=== PATIENT | female | born 1995 | race Caucasian/White ===

== ENCOUNTER 2018-07-16 17:56 | Emergency (ER) | payer MEDICAID ==
[2018-07-16] MEDS ORDERED: METHYLPREDNISOLONE INJ 125 MG/2 ML SDV IV ONE (18:24)
[2018-07-16] MEDS ORDERED: IPRATROPIUM/ALBUTEROL 0.5-2.5 MG/3 ML AMPUL NEB ONE (18:24)
--- NOTE | 2018-07-16 18:25 | ER Document Report ---
ED Medical Screen (RME) - General Chief Complaint: Abdominal Pain Stated Complaint: ABDOMINAL/BACK PAIN Time Seen by Provider: 07/16/18 18:19 Mode of Arrival: Ambulatory Information source: Patient Notes: 22-year-old female presents emergency department with complaints of a cramping sensation in the suprapubic region. She states that she has been having worsening pain for the last 2 weeks. She denies any radiation of the pain. She denies any alleviating or exacerbating factors. Patient states that she had her menstrual cycle a week ago. She states that her vaginal bleeding has stopped. Patient states that she has a Mirena in place. She thinks that the Mirena became dislodged. She states that it was placed on 01/05. Patient denies any abnormal vaginal discharge, dysuria, hematuria, increased urgency, increased frequency. Patient states that she has been having some wheezing, headaches, rhinorrhea, sore throat over the last 3 weeks. Physical exam is remarkable for wheezing. I have greeted and performed a rapid initial assessment of this patient. A comprehensive ED assessment and evaluation of the patient, analysis of test results and completion of the medical decision making process will be conducted by additional ED providers. PHYSICAL EXAMINATION: GENERAL: Well-appearing, well-nourished and in no acute distress. HEAD: Atraumatic, normocephalic. EYES: Pupils equal round extraocular movements intact, conjunctiva are normal. ENT: Nares patent NECK: Normal range of motion LUNGS: Diffuse wheezing Musculoskeletal: Normal range of motion NEUROLOGICAL: Normal speech, normal gait. PSYCH: Normal mood, normal affect. SKIN: Warm, Dry, normal turgor, no rashes or lesions noted. TRAVEL OUTSIDE OF THE [place] IN LAST 30 DAYS: No - Related Data Allergies/Adverse Reactions: No Known Allergies Allergy (Unverified 07/16/18 17:57) Physical Exam - Vital signs Vitals: Temp Pulse Resp BP Pulse Ox 98.6 F 95 16 127/81 H 95 07/16/18 17:59 07/16/18 17:59 07/16/18 17:59 07/16/18 17:59 07/16/18 17:59 Course - Vital Signs Vital signs: Temp Pulse Resp BP Pulse Ox 98.6 F 95 16 127/81 H 95 07/16/18 17:59 07/16/18 17:59 07/16/18 17:59 07/16/18 17:59 07/16/18 17:59
[2018-07-16] MEDS ORDERED: ACETAMINOPHEN 325 MG TABLET PO ONE (18:28)
[2018-07-16] MEDS ORDERED: METHYLPREDNISOLONE INJ 125 MG/2 ML SDV IM ONE (18:28)
--- NOTE | 2018-07-16 19:07 | ER Document Report ---
ED General - General Chief Complaint: Abdominal Pain Stated Complaint: ABDOMINAL/BACK PAIN Time Seen by Provider: 07/16/18 18:19 Mode of Arrival: Ambulatory Information source: Patient Notes: 22-year-old female presents with complaint of suprapubic abdominal pain that has been ongoing for 9 months but worse over the last week. She describes the pain as pressure-like, stabbing. Patient states that she had an IUD placed 7 months ago and experienced her first. 2 weeks ago which ended 1 week ago. Patient denies vaginal discharge but states that she has noticed a foul odor. Patient does have a 9-month-old daughter. Patient denies any fever, nausea, vomiting. She does have associated cough, nasal congestion, chills and low back pain. Patient is concerned that her IUD is misplaced because when she went to feel for the strings earlier this week she noticed that a lot more of the string was hanging out. She states that 2 days ago she had intercourse with her who now told her that he could feel something unusual. TRAVEL OUTSIDE OF THE [place] IN LAST 30 DAYS: No - HPI Onset: Other Onset/Duration: Gradual, Persistent Quality of pain: Pressure, Stabbing Severity: Moderate Associated symptoms: Chills, Nonproductive cough Exacerbated by: Denies Relieved by: Denies Similar symptoms previously: Yes Recently seen / treated by doctor: Yes - Related Data Allergies/Adverse Reactions: No Known Allergies Allergy (Unverified 07/16/18 17:57) Past Medical History - General Information source: Patient - Social History Smoking Status: Unknown if Ever Smoked Chew tobacco use (# tins/day): No Frequency of alcohol use: None Drug Abuse: None Lives with: Family Family History: Reviewed & Not Pertinent Patient has suicidal ideation: No Patient has homicidal ideation: No - Medical History Medical History: Negative Renal/ Medical History: Denies: Hx Peritoneal Dialysis Review of Systems - Review of Systems Notes: PHYSICAL EXAMINATION: GENERAL: Well-appearing, well-nourished and in no acute distress. HEAD: Atraumatic, normocephalic. EYES: Pupils equal round and reactive to light, extraocular movements intact, conjunctiva are normal. ENT: Nares patent, oropharynx clear without exudates. Moist mucous membranes. NECK: Normal range of motion, supple without lymphadenopathy LUNGS: Breath sounds clear to auscultation bilaterally and equal. No wheezes rales or rhonchi. HEART: Regular rate and rhythm without murmurs ABDOMEN: Soft, nontender, nondistended abdomen. No guarding, no rebound. No masses appreciated. Female : deferred Musculoskeletal: Normal range of motion, no pitting or edema. No cyanosis. NEUROLOGICAL: Cranial nerves grossly intact. Normal speech, normal gait. Normal sensory, motor exams PSYCH: Normal mood, normal affect. SKIN: Warm, Dry, normal turgor, no rashes or lesions noted. Physical Exam - Vital signs Vitals: Temp Pulse Resp BP Pulse Ox 98.6 F 95 16 127/81 H 95 07/16/18 17:59 07/16/18 17:59 07/16/18 17:59 07/16/18 17:59 07/16/18 17:59 - Notes Notes: PHYSICAL EXAMINATION: GENERAL: Well-appearing, well-nourished and in no acute distress. HEAD: Atraumatic, normocephalic. EYES: Pupils equal round and reactive to light, extraocular movements intact, conjunctiva are normal. ENT: Nares patent, oropharynx clear without exudates. Moist mucous membranes. NECK: Normal range of motion, supple without lymphadenopathy LUNGS: Breath sounds clear to auscultation bilaterally and equal. No wheezes rales or rhonchi. HEART: Regular rate and rhythm without murmurs ABDOMEN: Soft, nontender, nondistended abdomen. No guarding, no rebound. No masses appreciated. Female : Pelvic exam; External genitalia unremarkable. Speculum exam with discharge/no discharge. Vaginal wall unremarkable. Os closed. IUD strings appreciated. No cervical motion tenderness. No adnexal tenderness or masses appreciated. Swabs obtained for gonorrhea, chlamydia and wet prep. Musculoskeletal: Normal range of motion, no pitting or edema. No cyanosis. NEUROLOGICAL: Cranial nerves grossly intact. Normal speech, normal gait. Normal sensory, motor exams PSYCH: Normal mood, normal affect. SKIN: Warm, Dry, normal turgor, no rashes or lesions noted. Course - Re-evaluation Re-evalutation: Laboratory 07/16/18 07/16/18 07/16/18 18:30 18:30 20:00 Urine Color YELLOW Urine Appearance CLEAR Urine pH 5.0 Ur Specific Matthews 1.023 Urine Protein NEGATIVE Urine Glucose (UA) NEGATIVE Urine Ketones NEGATIVE Urine Blood SMALL H Urine Nitrite NEGATIVE Urine Bilirubin NEGATIVE Urine Urobilinogen NEGATIVE Ur Leukocyte Esterase NEGATIVE Urine WBC (Auto) 0 Urine RBC (Auto) 2 Squamous Epi Cells Auto 1 Urine Mucus (Auto) RARE Urine Ascorbic Acid NEGATIVE Urine HCG, Qual NEGATIVE Epi Cells (Wet Prep) Cancelled Bacteria (Wet Prep) Cancelled Trichomonas (Wet Prep) Cancelled Vaginal WBC Cancelled Vaginal RBC Cancelled Vaginal Yeast Cancelled 07/16/18 22:20 Urine Color Urine Appearance Urine pH Ur Specific Matthews Urine Protein Urine Glucose (UA) Urine Ketones Urine Blood Urine Nitrite Urine Bilirubin Urine Urobilinogen Ur Leukocyte Esterase Urine WBC (Auto) Urine RBC (Auto) Squamous Epi Cells Auto Urine Mucus (Auto) Urine Ascorbic Acid Urine HCG, Qual Epi Cells (Wet Prep) Bacteria (Wet Prep) Trichomonas (Wet Prep) NO TRICHOMONAS SEEN Vaginal WBC NO WBCS SEEN Vaginal RBC NO RBCS SEEN Vaginal Yeast NO YEAST SEEN Chest X-Ray 07/16/18 18:23 IMPRESSION: REACTIVE AIRWAY DISEASE VERSUS VIRAL SYNDROME. NO CONSOLIDATION. Transvaginal US 07/16/18 19:03 IMPRESSION: Intrauterine device is present in the cervical canal. 22-year-old female presents with complaint of suprapubic abdominal pain that started 1 week prior to arrival. Patient describes the pain as pressure-like, stabbing. Upon arrival vitals were reviewed and within normal limits. Patient does not appear toxic or dehydrated. She is in no acute distress. Pelvic exam did show thin white discharge and IUD strings were identified. Transvaginal ultrasound was performed and showed the IUD in the cervical canal. No evidence of urinary tract infection, bacterial vaginosis, trichomonas. I did speak to OB /SECURITY OPERATIONS ANALYST on-call who advises to remove the IUD which was done without difficulty. Patient received Motrin for pelvic cramping. Patient was evaluated and treated as appropriate for the patient's presenting symptoms and complaint, with consideration of any critical or life threatening conditions that may be associated with their obtained history and exam as noted above. All results were discussed with patient. Patient provided the opportunity to ask questions, and express concerns. Patient was educated on treatments based on their presumed diagnosis as noted above. At this time we will discharge the patient with return precautions and follow-up recommendations. Verbal discharge instructions given a the bedside. Medication warnings reviewed. Patient is in agreement with this plan and has verbalized understanding of return precautions. After careful consideration I feel that that patient can be safely discharged from the emergency department, they were advised to followup with a primary care physician in 2-3 days. Dictation on this chart was performed using voice recognition software and may result in unintended grammatical, spelling, syntax or errors. 07/16/18 21:[address] Romero OB on-call regarding the patient's IUD that is in the cervical canal. He advises removing it. 07/16/18 22:20 IUD was easily removed with [employer] forceps. Repeat swabs obtained secondary to initial samples being sent to the wrong part of the department. 07/16/18 23:35 07/16/18 23:36 - Vital Signs Vital signs: Temp Pulse Resp BP Pulse Ox 98.6 F 95 16 127/81 H 95 07/16/18 17:59 07/16/18 17:59 07/16/18 17:59 07/16/18 17:59 07/16/18 17:59 - Laboratory Laboratory results interpreted by me: 07/16/18 18:30 Urine Blood SMALL H - Diagnostic Test Radiology reviewed: Image reviewed, Reports reviewed Discharge - Discharge Clinical Impression: Pelvic pain, Abdominal cramping IUD complication Qualifiers: Device complication type: mechanical Mechanical complication type: other Encounter type: initial encounter Qualified Code(s): T83.39XA - Other mechanical complication of intrauterine contraceptive device, initial encounter Condition: Good Disposition: HOME, SELF-CARE Instructions: Pelvic Pain ([facility]) Additional Instructions: Your ultrasound today showed that your IUD was in the cervical canal. After discussing these findings with PMO LEAD it was recommended that we remove the IUD which was performed without complication. Please follow-up with your PMO LEAD for reinsertion if desired. Follow up with your [id number] hours for further care or return to the ED IMMEDIATELY if symptoms worsen or you have any concerns. If you cannot afford to follow up with your primary care physician a list of low cost clinics have been provided at the end of your discharge papers as well. Most prescribed medications have multiple side effects. The safest thing to do is when filling your prescription speak to your pharmacist regarding possible interactions with your normal home medications and over the counter medications such as Ibuprofen, Tylenol, Benadryl. If you experience any symptoms that cause you discomfort or concern you should discontinue the medication immediately and return to the emergency room or call your primary care physician. Prescriptions: Naproxen [Naprosyn] 500 mg PO BID #20 tablet Referrals: IRENE RODRIGUEZ MD [ACTIVE STAFF] - Follow up as needed DINAH PAL MD [EMERITUS] - Follow up as needed
--- NOTE | 2018-07-16 19:10 | RADIOLOGY REPORT (SQ) ---
EXAM DESCRIPTION: CHEST 2 VIEWS COMPLETED DATE/TIME: 07/16/2018 6:49 pm REASON FOR STUDY: cough COMPARISON: None. NUMBER OF VIEWS: Two view. TECHNIQUE: Frontal and lateral radiographic views of the chest acquired. LIMITATIONS: None. FINDINGS: LUNGS AND PLEURA: Mild Peribronchial cuffing . No consolidation, effusion, or pneumothora x. MEDIASTINUM AND HILAR STRUCTURES: No masses. No contour abnormalities. HEART AND VASCULAR STRUCTURES: Heart normal in size and contour. No evidence for failure. BONES: No acute findings. HARDWARE: None in the chest. OTHER: No other significant finding. IMPRESSION: REACTIVE AIRWAY DISEASE VERSUS VIRAL SYNDROME. NO CONSOLIDATION. TECHNICAL DOCUMENTATION: JOB ID: [id number] [place]-[id number] 2010 [employer]- All Rights Reserved Reading location - IP/workstation name: [employer]
[2018-07-16 20:23] LABS: APPEARANCE,URINE CLEAR; BILIRUBIN,URINE NEGATIVE (NEGATIVE); COLOR,URINE YELLOW; GLUCOSE, URINE NEGATIVE (NEGATIVE); KETONES,URINE NEGATIVE (NEGATIVE); LEUKOCYTE ESTERASE,URINE NEGATIVE (NEGATIVE); NITRITE,URINE NEGATIVE (NEGATIVE); PROTEIN,URINE NEGATIVE (NEGATIVE); URINE SPECIFIC GRAVITY 1.023; UROBILINOGEN,URINE NEGATIVE mg/dL (<2.0)
--- NOTE | 2018-07-16 20:40 | RADIOLOGY REPORT (SQ) ---
EXAM DESCRIPTION: U/S NON OB PEL TV W/DOPPLER COMPLETED DATE/TIME: 07/16/2018 8:07 pm REASON FOR STUDY: pelvic pain COMPARISON: None. TECHNIQUE: Dynamic and static grayscale images acquired of the pelvis via transvaginal approach and recorded on PACS. Additional selected color Doppler and spectral images recorded. LIMITATIONS: None. FINDINGS: UTERUS: Contour normal. No mass. ENDOMETRIAL STRIPE: No focal or generalized thickening. No masses. CERVIX: Intrauterine device is present in the cervical canal. RIGHT OVARY AND DOPPLER: Normal size. No worrisome masses. Normal arterial vascular flow without evid ence for torsion. LEFT OVARY AND DOPPLER: Normal size. No worrisome masses. Normal arterial vascular flow without evide nce for torsion. FREE FLUID: None noted. OTHER: No other significant finding. MEASUREMENTS: UTERUS: 7.3 x 4.2 x 3.4 cm ENDOMETRIAL STRIPE: 6.7 mm RIGHT OVARY: 3.8 x 2.2 x 1.8 cm LEFT OVARY: 3.9 x 2.4 x 2.4 cm IMPRESSION: Intrauterine device is present in the cervical canal. TECHNICAL DOCUMENTATION: JOB ID: [id number] [place]-[id number] 2010 [employer]- All Rights Reserved Rev-01/29 Reading location - IP/workstation name: [email or web address]
[2018-07-16 22:30] LABS: RBCS (WET MOUNT) NO RBCS SEEN; T.VAGINALIS (WET MOUNT) NO TRICHOMONAS SEEN; WBCS (WET MOUNT) NO WBCS SEEN; YEAST (WET MOUNT) NO YEAST SEEN
[2018-07-16] MEDS ORDERED: IBUPROFEN 600 MG TABLET PO ONE (22:32)
[2018-07-16 23:18] LABS: CHLAM PCR NOT DETECTED (NOT DETECT); GON PCR NOT DETECTED (NOT DETECT)
[2018-07-17 00:04] VITALS: BP 137/78
== END 2018-07-17 00:03 | disposition home or self-care (01) ==
LOC: ER 17:56
DX: T83.39XA Other mechanical complication of intrauterine contraceptive device, initial encounter (principal); R10.2 Pelvic and perineal pain; R10.9 Unspecified abdominal pain; M54.9 Dorsalgia, unspecified; R05 Cough; R09.81 Nasal congestion; M54.5 Low back pain; R68.83 Chills (without fever); X58.XXXA Exposure to other specified factors, initial encounter
CPT/HCPCS: 94640; 99284; 96372; 36415; 87210; 81025; 81001; 87491; 87591; 71046; 76830; 93976; J3490 ×2; J2930; J7620